=== PATIENT | male | born 1945 | race African-American/Black ===

== ENCOUNTER 2020-03-12 12:58 | Emergency (ER) | payer BC, MEDICARE ==
[~2020-03-12] VITALS: Ht 182.9 cm; Wt 68.0 kg
[~2020-03-12 12:58] MED LIST: AMLO10TA80 PO; ASPI-1160 PO; ATOR10TA69 PO; CHOL500010 PO; DARU600T PO; DOLU50TA PO; MARA150T PO; RITO100T PO; TAMS0.4C31 PO; TIOT18CA3 INH
[2020-03-12 13:54] LABS: EOSINOPHILS % 1.5 % (0.0-5.0); HEMATOCRIT. 36.6 % (42.0-52.0); HEMOGLOBIN. 12.2 g/dL (14.0-18.0); LYMPHOCYTES % 20.9 % (20.0-50.0); MEAN CORPUSCULAR HEMOGLOBIN 26.8 pg (28.0-32.0); MEAN CORPUSCULAR VOLUME 80.3 fL (80.0-94.0); MEAN PLATELET VOLUME 7.6 fl (7.4-10.4); MONOCYTES % 5.6 % (2.0-8.0); PLATELET 383 x1000/uL (130-400); RED BLOOD CELL COUNT 4.56 mill/uL (4.7-6.1); RED CELL DISTRIBUTION WIDTH 14.8 % (11.6-14.6)
[2020-03-12 14:02] LABS: CHLORIDE 105 mEq/L (98-107)
[2020-03-12] MEDS ORDERED: MORPHINE SULFATE 4 MG/ML CPJ (NOT FOR IM USE) IV STA ×2 (14:40→17:31)
[2020-03-12] MEDS ORDERED: ONDANSETRON HCL 4MG/2ML INJ IV STA ×2 (14:40→17:31)
[2020-03-12 17:40] LABS: CLARITY URINE CLOUDY (CLEAR); COLOR URINE YELLOW (YELLOW); KETONES URINE NEGATIVE (NEGATIVE); LEUKOCYTE ESTERASE URINE TRACE (NEGATIVE); NITRITE URINE NEGATIVE (NEGATIVE); OCCULT BLOOD URINE NEGATIVE (NEGATIVE); PROTEIN URINE 2+ (NEGATIVE); SPECIFIC GRAVITY URINE 1.012 (1.005-1.030); UROBILINOGEN URINE 0.2 E.U./dL (0.2-1.0)
[2020-03-12] MEDS ORDERED: SODIUM CHLORIDE 0.9% 1,000 ML IV ONE (17:45)
[2020-03-12] MEDS ORDERED: CEFTRIAXONE 1 G PREMIX 50 ML IV ONE (19:15)
[2020-03-12 20:05] LABS: CREATINE KINASE 131 IU/L (39-308)
[2020-03-13] MEDS ORDERED: MORPHINE SULFATE 4 MG/ML CPJ (NOT FOR IM USE) IV SCH (01:30)
[2020-03-13 02:30] VITALS: BP 152/62
== END 2020-03-13 04:32 | disposition short-term general hospital (02) ==
LOC: ER 12:58 → CANBEDREQ 03-13 02:21 → ER 03-13 04:32
DX: S72.092A Other fracture of head and neck of left femur, initial encounter for closed fracture (principal); W18.39XA Other fall on same level, initial encounter; Y93.89 Activity, other specified; Y92.89 Other specified places as the place of occurrence of the external cause; Y99.8 Other external cause status; Z86.73 Personal history of transient ischemic attack (TIA), and cerebral infarction without residual deficits; N30.00 Acute cystitis without hematuria; Z79.82 Long term (current) use of aspirin; Z79.899 Other long term (current) drug therapy
CPT/HCPCS: 36415; 71045; 73502; 73700; 80053; 81003; 82550; 85025; 96365; 96375; 96376; 99285; J0696; J2270; J2405; J7030

== ENCOUNTER 2021-08-13 12:59 | Emergency (ER) | payer BC, MEDICARE ==
[~2021-08-13] VITALS: Ht 185.4 cm; Wt 68.0 kg
[2021-08-13] MEDS ORDERED: ONDANSETRON HCL 4MG/2ML INJ IV STA (13:42)
[2021-08-13] MEDS ORDERED: MORPHINE SULFATE 4 MG/ML CPJ (NOT FOR IM USE) IV STA (13:42)
[2021-08-13] MEDS ORDERED: SODIUM CHLORIDE 0.9% 1,000 ML IV ONE (13:45)
[2021-08-13 14:19] LABS: BASOPHILS % 0.5 % (0.0-2.0); EOSINOPHILS % 0.3 % (0.0-5.0); HEMATOCRIT. 39.9 % (42.0-52.0); HEMOGLOBIN. 12.5 g/dL (14.0-18.0); LYMPHOCYTES % 13.8 % (20.0-50.0); MEAN CORPUSCULAR HEMOGLOBIN 25.2 pg (28.0-32.0); MEAN CORPUSCULAR VOLUME 80.6 fL (80.0-94.0); MEAN PLATELET VOLUME 7.5 fl (7.4-10.4); MONOCYTES % 9.4 % (2.0-8.0); PLATELET 260 x1000/uL (130-400); RED BLOOD CELL COUNT 4.96 mill/uL (4.7-6.1); RED CELL DISTRIBUTION WIDTH 18.2 % (11.6-14.6)
[2021-08-13 14:25] LABS: CHLORIDE 106 mEq/L (98-107)
[2021-08-13] MEDS ORDERED: CEFTRIAXONE 1 G PREMIX 50 ML IV ONE (18:15)
[2021-08-13] MEDS ORDERED: AZITHROMYCIN 500MG/250ML 250 ML IV ONE (18:15)
[2021-08-13] MEDS ORDERED: SODIUM CHLORIDE 0.9% 1000ML BAG (SEPSIS BOLUS) IV ONE (18:15)
[2021-08-13 19:00] LABS: CHLORIDE 109 mEq/L (98-107)
[2021-08-14] MEDS ORDERED: MORPHINE SULFATE 4 MG/ML CPJ (NOT FOR IM USE) IV ONE (00:30)
[2021-08-14 00:36] VITALS: BP 165/75
== END 2021-08-14 00:36 ==
LOC: ER 12:59
DX: M25.552 Pain in left hip (principal); M25.551 Pain in right hip; R91.8 Other nonspecific abnormal finding of lung field; I50.9 Heart failure, unspecified; I71.4 Abdominal aortic aneurysm, without rupture; M81.0 Age-related osteoporosis without current pathological fracture; W01.0XXA Fall on same level from slipping, tripping and stumbling without subsequent striking against object, initial encounter; Y93.9 Activity, unspecified; Y92.9 Unspecified place or not applicable; Z86.73 Personal history of transient ischemic attack (TIA), and cerebral infarction without residual deficits; Z96.643 Presence of artificial hip joint, bilateral; Z20.822 Contact with and (suspected) exposure to COVID-19
CPT/HCPCS: 36415; 71045; 72192; 73521; 73552; 80048; 80053; 83605; 83880; 84484; 85025; 87040; 87077; 87186; 87426; 93005; 96361; 96365; 96366; 96367; 96375; 96376; 99285; J0456; J0696; J2270; J2405; J7030